=== PATIENT | male | born 1955 | race Caucasian/White ===

== ENCOUNTER 2023-06-13 14:04 | Outpatient (CLI) | payer MEDICARE, BC ==
[~2023-06-13] VITALS: Ht 180.3 cm; Wt 112.9 kg
[~2023-06-13 14:04] MED LIST: ALBU8.5H17 INH; CARV3.122 PO; FURO-150 PO; LISI2.5T14 PO; POTA20PA40 PO
[2023-06-13 14:37] LABS: TOTAL HEMOGLOBIN 16.4 G/dl (14.0-17.9)
[2023-06-13] MEDS ORDERED: albuterol 2.5 MG/3 ML nebule NEB ONE (15:00)
[2023-06-13 15:11] VITALS: PULSE 84; RESP 16; O2SAT 94
== END 2023-06-13 23:59 | disposition home or self-care (01) ==
LOC: RT 14:04
PROVIDERS: ATTEND Internal Medicine Pulmonary Disease
DX: J44.9 Chronic obstructive pulmonary disease, unspecified (principal)
CPT/HCPCS: 85018; 94060; 94727; 94729; 94760

== ENCOUNTER 2024-12-23 11:57 | Emergency (ER) | payer MEDICARE, BC ==
[~2024-12-23] VITALS: Ht 180.3 cm; Wt 111.9 kg
[2024-12-23 13:42] VITALS: BP 130/85; PULSE 75; O2SAT 97
--- NOTE | 2024-12-23 14:56 | ELECTROCARDIOGRAPH REPORT ---
[facility] Test Date: 2024-12-23 Test Time: 14:53:55 Pat Name: RICHARD WEEKS Department: [facility] Patient ID: [id number] Room: Gender: M Tag Writer: : 1955 Requested By: ISSAC DUARTE Order Number: [id number] Reading MD: Dr. Osorio Mobley Measurements Intervals [place] Rate: 75 P: 0 NE: 144 QRS: 62 QRSD: 147 T: -55 QT: 434 QTc: 485 Interpretive Statements A-V dual-paced complexes w/ some inhibition No further analysis attempted due to paced rhythm Electronically Signed On 12-24-2024 19:28:[address] Osorio Mobley Please click the below link to view image of tracing.
[2024-12-23 15:01] LABS: MEAN PLATELET VOLUME 7.7 FL (7.4-10.4); RED CELL DISTRIBUTION WIDTH 14.8 % (11.5-14.5)
--- NOTE | 2024-12-23 15:11 | RADIOLOGY REPORT ---
CHEST RADIOGRAPH Indication: CHEST PAIN Technique: Single frontal view of the chest was obtained Comparison: None FINDINGS: Lines and Tubes: Dual lead left-sided pacemaker Lungs: No focal consolidation. Pleura: No effusion. No pneumothorax. Cardiomediastinal contours: Unremarkable Bones: No acute osseous abnormality. IMPRESSION: No acute cardiopulmonary disease.
[2024-12-23 15:20] VITALS: RESP 15
[2024-12-23 15:29] LABS: CREATININE 1.55 MG/DL (0.60-1.10); PRO BRAIN NATRIURETIC PEPTIDE 120 PG/ML (0-125); TOTAL CARBON DIOXIDE 32.2 MMOL/L (24-32); eCRCL 49 ML/MIN; eGFR 45 ML/MIN
--- NOTE | 2024-12-23 15:36 | Physician Documentation ---
History of Present Illness ~ Chief Complaint: See Chief Complaint Stated Complaint: CHIEF II DISPATCHER MOVEMENT Time Seen by MD: 13:54 Primary Medical Doctor: Dr. Tirado Source: patient Mode of Arrival: POV, Ambulatory Exam Limitations: no limitations HPI Patient in who had a pacer placed back in August with Dr. Casper. His belting and webbing inspector is Dr. Dempsey. He has had a pacemaker before that he had for about 10 years. He states he has had some pain at this site since he had the surgery. He feels like the pacer has moved. Other than that he feels fine. No shortness of breath or lightheadedness. No dizziness. No sign of infection. He is worried it will poke through his skin. He states his 1st 1 did not stick up above the skin like this 1 does. Medication Reconciliation Allergies: Coded Allergies: No Known Allergies (Unverified , 06/22/15) Scheduled Carvedilol (Carvedilol), 1 TAB PO DAILY, (Reported) Furosemide* (Lasix*), 2 TAB PO DAILY, (Reported) Lisinopril (Lisinopril), 1 TAB PO DAILY, (Reported) Potassium Chloride (Klor-Con), 1 TAB PO DAILY, (Reported) Scheduled PRN Albuterol Sulfate (Proair Hfa), 1-2 PUFFS INH Q4H PRN for SOB or wheezing, (Reported) Past Medical History Past Medical History: Congestive Heart Failure, Pneumonia Past Surgical History: no surgical history Patient History: (COPD) Chronic obstructive lung disease FATHER (Cancer) Malignant carcinoid tumor MOTHER, Onset:60 years & older (DM Type 2) Diabetes mellitus type 2 MOTHER Cardiac arrest FATHER, Onset:78 Smoking Status: Former smoker Alcohol Use: Occasionally Drug Use: none Lives with: Spouse Lives In: Home Review of Systems All Other Systems at this time: Reviewed and Negative Physical Exam Vital Signs: Temperature: 97.7, Source: Oral, Heart Rate: 75, Respiratory Rate: 15, BP: 130/85, Pulse Oximetry: 97, Weight: 111.900 Oxygen Flow Rate: 0 General Appearance: alert, WD/WN Neck: normal inspection, full range of motion Respiratory: lungs clear, normal breath sounds, no respiratory distress Cardiovascular: regular rate, rhythm Cardiovascular Pacemaker appears normal my can palpate as left chest wall, incision site is clean dry and intact Gastrointestinal: normal palpation Neurologic: oriented x4, memory intact Psychiatric: normal mood/affect Skin: normal color, warm/dry Progress Progress Note Did do a workup on the patient. CBC, chemistry and troponin were negative. EKG and chest x-ray unremarkable. Pacer is in place on chest x-ray. Offered reassurance to the patient. I did call his surgeon's office who is out of town on vacation. I did get him follow up on January 13 with his belting and webbing inspector. Discharging home in good condition. He is to return here if new or worsening symptoms or any concerns prior to follow up. Results/Orders Results/Orders Orders - ISSAC DUARTE MD Chest,Single View (12/23/24 14:44) Completed Orders - ISSAC DUARTE MD Cbc/Diff (12/23/24 14:44) PBNP (12/23/24 14:44) Chest,Single View (12/23/24 14:44) Electrocardiogram (12/23/24 14:44) BMP (12/23/24 14:44) Hs Troponin I W Calculations (12/23/24 14:44) Vital Signs 12/23/24 12/23/24 12/23/24 12/23/24 11:58 13:42 15:20 15:45 Temp 97.7 97.7 Pulse 82 75 Resp 16 16 15 B/P (MAP) 155/73 130/85 (100) Pulse Ox 97 97 O2 Flow Rate 0 Laboratory Tests Test 12/23/24 14:53 White Blood Count 10.3 Red Blood Count 4.95 Hemoglobin 15.4 Hematocrit 44.8 Mean Corpuscular Volume 90.5 Mean Corpuscular Hemoglobin 31.1 H Mean Corpuscular Hemoglobin Concent 34.4 Red Cell Distribution Width 14.8 H Platelet Count 193 Mean Platelet Volume 7.7 Neutrophils (%) (Auto) 72.4 Lymphocytes (%) (Auto) 17.2 L Monocytes (%) (Auto) 7.9 Eosinophils (%) (Auto) 1.3 Basophils (%) (Auto) 1.2 H Neutrophils # (Auto) 7.5 Lymphocytes # (Auto) 1.8 Monocytes # (Auto) 0.8 Eosinophils # (Auto) 0.1 Basophils # (Auto) 0.1 CBC Comment Sodium Level 137 Potassium Level 3.9 Chloride Level 104 Carbon Dioxide Level 32.2 H Anion Gap 1 L Blood Urea Nitrogen 18 Creatinine 1.55 H Estimated GFR/1.73 m2 45 BUN/Creatinine Ratio 11.6 Glucose Level 96 Calcium Level 9.0 Troponin I High Sensitivity 12 Pro-B-Type Natriuretic Peptide 120 Albumin 3.7 Chemistry Comments EKG/XRAY/CT/US/VASC/MRI EKG : EKG Rate: 75 EKG: no ST T wave changes [place]: other (Paced rhythm) Departure Impression: Primary Impression: Pacemaker Condition: Stable Additional Instructions: Keep your follow up with Dr. Dempsey on January 13 at 1:20 p.m.. Return here if new or worsening symptoms prior to follow up. You can also call the office of Dr. Casper and make a follow up appointment. Referrals: NO PRIMARY CARE PROVIDER (PCP) Education Educated: Patient Educated regarding: diagnosis, need for follow up Signature Scribe Signature: No scribe used Attestation: No scribe used ISSAC DUARTE MD Dec 23, 2024 15:35
[2024-12-23 15:45] VITALS: TEMP 97.7
== END 2024-12-23 15:48 | disposition home or self-care (01) ==
LOC: ER 11:57
DX: Z95.0 Presence of cardiac pacemaker (principal); I50.9 Heart failure, unspecified; Z87.891 Personal history of nicotine dependence
CPT/HCPCS: 36415; 71045; 80048; 83880; 84484; 85025; 93005; 99285